=== PATIENT | male | born 1960 | race Caucasian/White ===

== ENCOUNTER → 2016-07-22 | Outpatient (CLI) | payer OTHER ==
[2016-07-23 10:32] LABS: C-REACTIVE PROTEIN < 5.0 mg/L (<10.0); URIC ACID 5.7 mg/dL (3.5-8.5)
== END ==
LOC: OD 10:44
PROVIDERS: ATTEND Orthopaedic Surgery
DX: M15.9 Polyosteoarthritis, unspecified (principal)
CPT/HCPCS: 36415; 84550; 85652; 86038; 86140; 86200; 86430